=== PATIENT | female | born 1960 | race American Indian/Alaskan Native ===

== ENCOUNTER 2017-10-17 06:09 | Day surgery (SDC) | payer BC ==
[2017-10-17] MEDS ORDERED: ECOTRIN PO NR (06:38)
[2017-10-17] MEDS ORDERED: NACL 0.9% 500 ML 500 ML IV SCH (07:00)
[2017-10-17] MEDS ORDERED: HEPARIN 10,000 UNITS/10 ML ONE (08:27)
[2017-10-17] MEDS ORDERED: HEPARIN/NS 5000 UNIT/500ML(CATH LAB) 1,000 ML IR ONE (08:27)
[2017-10-17] MEDS ORDERED: CALAN ONE (08:28)
[2017-10-17] MEDS ORDERED: XYLOCAINE 2% INFILTRATI ONE (08:28)
[2017-10-17] MEDS ORDERED: NITROGLYCERIN SYRINGE 0 ML ONE (08:29)
[2017-10-17] MEDS ORDERED: VERSED ONE (08:30)
[2017-10-17] MEDS ORDERED: SUBLIMAZE ONE (08:31)
--- NOTE | 2017-10-17 10:22 | Cardiac Catherization Report ---
CARDIAC CATHETERIZATION INDICATION FOR PROCEDURE: A 57-year-old female with history of chest pains atypical and noted to have abnormal stress thallium. The patient's nuclear imaging showed anteroapical reversibility and the inferoseptal defect is noted to be fixed. Because of this abnormality and atypical chest pain she was recommended medical therapy versus invasive diagnostic catheterization. The patient opted to have cardiac catheterization for definitive diagnosis and treatment. The patient is aware of the procedure, potential complications and alternatives of therapy available. The patient being initially evaluated for shortness of breath with exertion. The patient was brought to the catheterization laboratory in a fasting condition. The right wrist area and forearm thoroughly cleansed with Betadine solution. Sterile drapes were applied. Local anesthesia was achieved using 2% Xylocaine. Right radial artery puncture was made using 21-gauge arterial puncture needle. Subsequently, 5-Slovenian slender sheath was introduced. The patient received 3000 units of intravenous heparin and 5 mg of intra-arterial verapamil. Subsequently, using multipurpose catheter, right coronary angiograms were obtained in multiple views followed by angiograms of the left ventricle done in BRUNSON projection using hand injection. Subsequently, 5-Slovenian TIG catheter was used to obtain the angiograms of the left coronary artery in multiple views. At the end of the procedure, catheter and sheath were removed. Good hemostasis was achieved with pressure bandage. The patient tolerated the procedure well with no untoward complications. Right radial artery hemostasis was obtained with radial band. The patient was transferred to the room in stable condition. The patient was evaluated for moderate sedation and she was felt to be appropriate candidate for moderate sedation with IV Versed and fentanyl. The patient was sedated with 1 mg of IV Versed and 50 mg of fentanyl at 9:40 a.m. and was monitored with blood pressure monitoring, EKG monitoring and O2 saturations continuously after 9:55 a.m. Subsequently, the patient was transferred to the room in stable condition. Following findings were noted. HEMODYNAMICS: 1. Opening aortic pressure 132/60, left ventricular pressure 142/27. No gradient across the aortic valve. Estimated ejection fraction 55%. 2. Left ventriculogram done in BRUNSON projection shows normal sized left ventricle with normal contractility. End-diastolic and systolic volumes are normal. Mitral regurgitation could not be evaluated because of the limited amount of dye injected. 3. Right coronary artery dominant vessel arises normally from right coronary cusp, angiographically smooth and normal. 4. Left coronary artery arises normally from left coronary cusp. Left main is long, smooth and normal. Similarly LAD, which curves around the apex and its branch are angiographically smooth and normal. Circumflex artery and its branch are angiographically smooth and normal. FINAL IMPRESSION: 1. Normal size left ventricle with normal contractility. 2. Essentially normal coronary anatomy with RCA being the dominant vessel. 3. Right radial artery was used for access. No untoward complications were noted. The patient was given moderate sedation without any complications. 4. At this time, the patient does not have any angiographically documented significant coronary disease. However, she was recommended to continue risk factor modification, namely losing weight and exercise program she understands. JOB# [id number] RAQUEL/ADITI
--- NOTE | 2017-10-17 12:33 | Short Stay Summary ---
Short Stay Documentation Date of service: 10/17/17 - History H&P: obtained from office - Allergies and Medications Current Medications: Allergies cephalexin [From Keflex] Allergy (Unverified 10/17/17 06:12) Rash Home Medications Medication Instructions Recorded Confirmed Last Taken Type Aspirin [Lo-Dose Aspirin EC] 81 mg PO DAILY 10/17/17 10/17/17 10/16/17 History Atenolol [Tenormin] 25 mg PO DAILY 10/17/17 10/17/17 10/16/17 History 25 mg Atorvastatin Calcium [Lipitor] 10 mg PO QDAY 10/17/17 10/17/17 10/16/17 History 10 mg Gabapentin [Neurontin] 800 mg PO QDAY 10/17/17 10/17/17 10/10/17 History 800 mg Oxymorphone HCl [Oxymorphone HCl 5 mg PO PRN PRN 10/17/17 10/17/17 10/16/17 History ER] 5mg Percocet 10/325 mg 1 tab PO QDAY PRN 10/17/17 10/17/17 10/10/17 History Active Medications Sodium Chloride (Nacl 0.9% 500 Ml) 500 mls @ 50 mls/hr IV DIRECT MANUELITO Stop: 10/17/17 16:59 Last Admin: 10/17/17 07:10 Dose: 50 mls/hr - Brief post op/procedure progress note Date of procedure: 10/17/17 Pre-op diagnosis: abnormal stress test; chest pain Post-op diagnosis: same Procedure: C - see dictated cath report Anesthesia: local Estimated blood loss: none Condition: stable - Disposition Condition at discharge: Stable Disposition: [id number] TO HOME OR SELFCARE - Discharge Diagnoses (1) Abnormal stress test Status: Chronic (2) Atypical chest pain Status: Chronic (3) Normal coronary arteries Status: Chronic Short Stay Discharge Plan Activity: advance as tolerated Wound: open to air, keep clean and dry, per your surgeon's advice Follow up with: ALICJA FLETCHER MD [Primary Care Provider] - 7 Days DORIAN ZUNIGA MD [Staff Physician] - 7 Days Forms: CardCath PCI D/C Instructions, Work/School Excuse Out Patient
[2017-10-17 12:51] VITALS: BP 112/50
== END 2017-10-17 06:10 | disposition home or self-care (01) ==
LOC: CATHLABREC 06:09
PROVIDERS: ATTEND Internal Medicine
DX: R07.89 Other chest pain (principal); Z88.1 Allergy status to other antibiotic agents
CPT/HCPCS: 93005; 93010; 93458; 99156; 99157; C1887; C1894; J1644; J2250; J3010; J7040; Q9967